=== PATIENT | female | born 1990 | race Asian ===

== ENCOUNTER 2023-11-11 13:46 | Outpatient (CLI) | payer BC | END 2023-11-11 13:47 | disposition home or self-care (01) | LOC: CSHULT 13:46 | PROVIDERS: ATTEND Advanced Practice Midwife | DX: O09.93 Supervision of high risk pregnancy, unspecified, third trimester (principal); N88.3 Incompetence of cervix uteri; Z3A.32 32 weeks gestation of pregnancy | CPT/HCPCS: 76805 ==

== ENCOUNTER 2024-01-02 12:53 | Inpatient (IN) | payer BC ==
[2024-01-02] MEDS ORDERED: Diphenoxylate HCl/Atropine Tablet PO PRN (13:32)
[2024-01-02] MEDS ORDERED: HYDROcodone/Acetaminophen 5/325 mg Tablet PO PRN ×2 (13:32→20:30)
[2024-01-02] MEDS ORDERED: hydrALAZINE 20 MG/ML VIAL SLOW IVP PRN ×2 (13:32→20:30)
[2024-01-02] MEDS ORDERED: Misoprostol 200 MCG TAB PR PRN (13:32)
[2024-01-02] MEDS ORDERED: Lidocaine 1% (PF) 30 ML VIAL SC PRN (13:32)
[2024-01-02] MEDS ORDERED: Carboprost 250 MCG/ML AMP IM PRN (13:32)
[2024-01-02] MEDS ORDERED: fentaNYL 50 mcg/mL 1 mL Vial SLOW IVP PRN (13:32)
[2024-01-02] MEDS ORDERED: Methylergonovine 0.2 MG/ML VIAL IM PRN (13:32)
[2024-01-02] MEDS ORDERED: Acetaminophen 500 MG TAB PO PRN (13:32)
[2024-01-02] MEDS ORDERED: Promethazine HCl 25 MG/ML VIAL IM PRN ×2 (13:32→14:38)
[2024-01-02] MEDS ORDERED: Tranexamic Acid 1,000 MG/10 ML VIAL IVP PRN (13:32)
[2024-01-02] MEDS ORDERED: Ondansetron PF 4 MG/2 ML Vial IVP PRN ×3 (13:32→20:30)
[2024-01-02] MEDS ORDERED: Oxytocin 30 units/NS 500 ML 500 ML IV SCH ×4 (13:45→20:30)
[2024-01-02] MEDS ORDERED: Lactated Ringer's 1,000 ML IV SCH (13:45)
[2024-01-02 14:10] LABS: Hematocrit 33.4 % (34.9-44.5); Hemoglobin 11.2 g/dL (12.0-15.5); Mean Corpuscular HGB CONC 33.5 g/dL (32.0-36.0); Mean Corpuscular Hemoglobin 30.3 pg (27.0-33.0); Mean Corpuscular Volume 90.3 fL (81.6-98.3); Mean Platelet Volume 11.4 fL (7.4-10.4); Platelet Count 198 10x3/uL (150-450); RBC Distribution Width 12.9 % (11.5-14.5); White Blood Cell (WBC) Count 7.4 10x3/uL (3.5-10.5)
[2024-01-02 14:16] VITALS: BMI 24.3
[2024-01-02] MEDS ORDERED: Moisturizing Cream (Eucerin) 113 GM JAR TOP PRN (14:38)
[2024-01-02] MEDS ORDERED: Lactated Ringer's 500 ML IV PRN (14:38)
[2024-01-02] MEDS ORDERED: Naloxone HCl 0.4 mg/ml Vial IVP PRN ×2 (14:38)
[2024-01-02] MEDS ORDERED: ePHEDrine Sulfate 50 MG/10 ML VIAL SLOW IVP PRN (14:38)
[2024-01-02] MEDS ORDERED: diphenhydrAMINE 50 MG/ML VIAL IVP PRN (14:38)
[2024-01-02] MEDS ORDERED: fentaNYL 2 mcg/Ropivacaine 0.2% Epidural 100 ML CADD EPIDURAL SCH (14:45)
[2024-01-02] MEDS ORDERED: Communication Order-Pharmacy FS SCH (14:45)
[2024-01-02 14:47] LABS: HBsAg Index 0.21 S/CO (0-0.99); Hep B Surf Ag - L&D Non-Reactive S/CO (NonReactive)
[2024-01-02 14:48] LABS: Syphilis Antibody Nonreactive (Nonreactive); Syphilis Antibody Index 0.03 S/CO (<1.00 Non-Reactive)
[2024-01-02] MEDS: Ibuprofen 800 MG TAB PO PRN (18:12)
[2024-01-02] MEDS: Acetaminophen 325 MG TAB PO PRN (19:29)
[2024-01-02 19:34] LABS: Influenza A by NAA Not Detected (NotDetected); Influenza B by NAA Not Detected (NotDetected); RSV by NAA Not Detected (NotDetected); SARS-CoV-2 NAA Rapid Test Not Detected (NotDetected)
[2024-01-02] MEDS ORDERED: Bisacodyl 10 MG SUPP PR PRN (20:30)
[2024-01-02] MEDS ORDERED: Milk Of Magnesia 30 ML UDCUP PO PRN (20:30)
[2024-01-02] MEDS ORDERED: diphenhydrAMINE 25 MG CAP PO PRN (20:30)
[2024-01-03] MEDS: Ibuprofen 800 MG TAB PO SCH (03:18)
[2024-01-03 04:19] LABS: Hematocrit 29.9 % (34.9-44.5); Hemoglobin 9.9 g/dL (12.0-15.5); Mean Corpuscular HGB CONC 33.1 g/dL (32.0-36.0); Mean Corpuscular Hemoglobin 29.9 pg (27.0-33.0); Mean Corpuscular Volume 90.3 fL (81.6-98.3); Mean Platelet Volume 11.3 fL (7.4-10.4); Platelet Count 196 10x3/uL (150-450); RBC Distribution Width 12.7 % (11.5-14.5); Red Blood Cell (RBC) Count 3.31 10x6/uL (3.90-5.03); White Blood Cell (WBC) Count 10.5 10x3/uL (3.5-10.5)
[2024-01-03] MEDS: Docusate 100 MG CAP PO SCH (07:20)
[2024-01-03] MEDS: fentaNYL/Ropivacaine Epidural 100 ML ONE (07:20)
[2024-01-03] MEDS: Boostrix 0.5 ML (Tdap) VIAL (>/=7 yrs of age) IM ONE (07:20)
[2024-01-03] MEDS: Ferrous Sulfate 325 MG TAB PO SCH (08:06)
[2024-01-03] MEDS: Prenatal Vitamin 1 TAB PO SCH (08:07)
[2024-01-03] MEDS: Benzocaine-Menthol 82.5 ML CAN TOP PRN (08:12)
[2024-01-03] MEDS ORDERED: Bupivacaine PF 0.5% 30 ML VIAL ONE (11:00)
[2024-01-03] MEDS ORDERED: Bupivacaine/Epinephrine 0.25% 30 ML VIAL ONE (11:00)
[2024-01-03] MEDS ORDERED: Bupivacaine 0.25% HCL 30 ML VIAL ONE (11:00)
[2024-01-04] MEDS: Ibuprofen 800 MG TAB PO SCH (05:42)
[2024-01-04 07:49] VITALS: BP 104/69; TEMP 97.8
== END 2024-01-04 17:40 | disposition home or self-care (01) | DRG 768 ==
LOC: CSHLD 12:53 → CSHPP 20:15
PROVIDERS: ADMIT Family Medicine; ATTEND Family Medicine
PROC: 10E0XZZ Delivery of Products of Conception, External Approach (ICD-10-PCS; principal; 2024-01-02)
PROC: 0UQC7ZZ Repair Cervix, Via Natural or Artificial Opening (ICD-10-PCS; 2024-01-02)
PROC: 0KQM0ZZ Repair Perineum Muscle, Open Approach (ICD-10-PCS; 2024-01-02)
PROC: 10907ZC Drainage of Amniotic Fluid, Therapeutic from Products of Conception, Via Natural or Artificial Opening (ICD-10-PCS; 2024-01-02)
DX: O34.211 Maternal care for low transverse scar from previous cesarean delivery (principal); Z37.0 Single live birth; O71.3 Obstetric laceration of cervix; Z3A.38 38 weeks gestation of pregnancy; O70.1 Second degree perineal laceration during delivery
CPT/HCPCS: 0241U; 36415; 51702; 85027; 86780; 86850; 86900; 86901; 87340; J0665